=== PATIENT | female | born 1980 | race Asian ===

== ENCOUNTER 2020-06-30 13:47 | Outpatient (CLI) | payer BC, SELFPAY ==
--- NOTE | ~2020-06-30 | US_ITS ---
EXAMINATION: US pelvic complete w TV DATE: 06/30/2020 14:45 INDICATION: Other specified nonrheumatoid disorders TECHNIQUE: Multiple transabdominal and endovaginal sonographic images of the pelvis were obtained. COMPARISON: None. FINDINGS: The uterus measures 15.4 x 10.3 x 7.7 cm. There is an 8.5 x 8.9 x 8.4 cm mass of the uterus which has the appearance of a fibroid. The endometrial complex is obscured. The left ovary is not vi sualized however no left adnexal abnormality is seen. The right ovary measures 3.1 x 3.0 x 1.8 cm. Th ere is normal vascular flow in the right ovary. There is no free fluid in the pelvis. IMPRESSION: 1. Uterine fibroid measuring up to 8.9 cm. Reviewed, dictated and finalized at location B.
== END 2020-06-30 13:48 | disposition home or self-care (01) ==
PROVIDERS: PCP Family Medicine; Visit Provider Family Medicine
DX: N85.8 Other specified noninflammatory disorders of uterus (principal); D25.9 Leiomyoma of uterus, unspecified
CPT/HCPCS: 76830; 76856

== ENCOUNTER → 2021-01-20 15:44 | Outpatient (CLI) | payer BC, SELFPAY ==
--- NOTE | ~2021-01-20 | MM_ITS ---
EXAMINATION: MM screening lila BI w nidia HISTORY: Screening mammogram TECHNIQUE: Craniocaudal and mediolateral oblique 3-D tomosynthesis images were obtained and synthetic 2-D images were generated. CAD analysis was submitted and interpreted. COMPARISON: None, baseline BREAST PARENCHYMAL COMPOSITION: The breasts are heterogeneously dense, which may obscure small masses . FINDINGS: There is no evidence of suspicious mass, calcification, or architectural distortion to sugg est malignancy in either breast. IMPRESSION: 1. No mammographic evidence of malignancy. 2. Recommend routine screening mammography in one year. BI-RADS Category 1: Negative Reviewed, dictated and finalized at location A.
== END ==
PROVIDERS: Visit Provider Student in an Organized Health Care Education/Training Program
DX: Z12.31 Encounter for screening mammogram for malignant neoplasm of breast (principal)
CPT/HCPCS: 77063; 77067

== ENCOUNTER 2021-03-13 16:19 | Emergency (ER) | payer BC, SELFPAY ==
[2021-03-13 16:24] VITALS: BP 107/60; PULSE 60; RESP 18; TEMP 36.6; O2SAT 100
--- NOTE | 2021-03-13 16:27 | ED.NAVMDI ---
HPI - Nausea/Vomiting/Diarrhea General Chief complaint: Nausea/Vomiting/Diarrhea Stated complaint: nausea Time Seen by Provider: 03/13/21 16:27 Source: patient and RN notes reviewed History of Present Illness HPI Narrative: Patient is a 41-year-old female who presents the urgent care with complaints of nausea. Patient states that 1 week ago she had some intermittent nausea and did take meclizine which improved the nausea. Patient states that she had the nausea this morning with some chills without vomiting. Patient states her last bowel movement was last night. Patient states she is currently trying to get and her last menstrual cycle was approximately 3 weeks ago. Patient states she has been eating and drinking normally without any recent changes in diet or medications. Patient denies suffering from nausea in the past. Denies of any urinary frequency, urgency, blood in the urine or pain with urination. No other acute complaints. No acute distress noted. Patient aware of the plan of care. Some parts of this dictation were generated by voice recognition software and may contain typographical and/or grammatical inaccuracies. Related Data Allergies Allergy/AdvReac Type Severity Reaction Status Date / Time No Known Allergies Allergy Verified 11/23/20 12:31 Review of Systems Review of Systems: Narrative: CONSTITUTIONAL: Denies fever, chills, or sweats. EYES: Denies visual changes, redness, or discharge. ENT: Denies rhinorrhea, congestion, sore throat, or otalgia. CARDIOVASCULAR: Denies chest pain, palpitations, or edema. RESPIRATORY: Denies cough or dyspnea. GASTROINTESTINAL: Reports of nausea without vomiting, diarrhea or abdominal pain GENITOURINARY: Denies dysuria or hematuria. SKIN: Denies rash or itching. MUSCULOSKELETAL: Denies back pain, joint pain, or myalgia. NEUROLOGIC: Denies headache, numbness, or weakness. All other systems reviewed are negative, except as documented in HPI. [facility] Past Medical History Medical History (Updated 03/13/21 @ 16:46 by ARI Omer) Macular scar Maculopathy Overweight (BMI 25.0-29.9) Uterine mass Family History Family History Father Diabetes mellitus Prostate disease FH: cataracts Cerebrovascular accident Mother Heart disease Hypertension Grandparent Heart disease Asthma Hypertension Grandparent Lung disease Social History Social History Smoking status: Never smoker Alcohol intake: current Substance use: never Gender identity (if verbalized by the patient): Female Comments At the time of my signature, I reviewed and agree with the nursing past medical, surgical, social, and family history. There is no relevant family history pertinent to the patient complaint. Exam Narrative: Exam Narrative: GENERAL: This is a well-nourished, well-developed patient, in no apparent distress. HEAD: normocephalic, atraumatic. EYES: PERRL. Sclera clear/white. Vision is grossly intact. EARS: External ears normal, auditory canals clear and without drainage, TMs normal without perforation. Hearing grossly intact. NOSE: External nose normal with no obvious nasal discharge, nares without redness, no rhinorrhea. THROAT: Mucous membranes moist, posterior pharynx clear. NECK: Neck supple CARDIOVASCULAR: Regular rate and rhythm without murmurs, gallops, or rubs. RESPIRATORY: Clear to auscultation. Breath sounds equal bilaterally. No wheezes, rales, or rhonchi. GASTROINTESTINAL: Abdomen soft, mild suprapubic tenderness, nondistended. Bowel sounds are active. SKIN: warm, intact with no suspicious lesions or rash, good texture and turgor. NEURO: awake, alert, and oriented to person, place and time. There were no obvious focal neurologic abnormalities. EXTREMITIES: No clubbing, cyanosis, or edema. Course Vital Signs Vital signs: Vital
== END 2021-03-13 16:57 | disposition home or self-care (01) ==
PROVIDERS: Emergency Provider Nurse Practitioner Family; PCP Family Medicine
DX: R11.0 Nausea (principal)
CPT/HCPCS: 81003; 81025; 99213; G0463

== ENCOUNTER 2021-05-17 10:49 | Emergency (ER) | payer BC, SELFPAY ==
[2021-05-17 10:56] VITALS: BP 128/81; PULSE 67; RESP 18; TEMP 36.6; O2SAT 100
--- NOTE | 2021-05-17 11:15 | ED.SKABFB ---
HPI - Skin/Abscess/Foreign Bdy General Chief complaint: Skin/Abscess/Foreign Body Stated complaint: rash Source: patient and RN notes reviewed Mode of arrival: ambulatory History of Present Illness HPI narrative: The patient, previously healthy on minimal medications, presents with skin eruption. Patient states she has about a 2-week history of pink, itchy, raised eruption generally on the exposed areas of her upper and lower extremities. Discussed possible causes of photosensitivity's and she only can recall use of sunscreen and some new detergents. No fever, URI?sinusitis, travel or swimming history, new meds, insect bite. Related Data Allergies Allergy/AdvReac Type Severity Reaction Status Date / Time No Known Allergies Allergy Verified 05/17/21 11:01 Review of Systems Review of Systems: Narrative: General/Constitutional: No weight loss,fever Eyes: N0: Redness,discharge Ears/Nose/Throat: No: Epistaxis,ear discharge Respiratory: Denies: Hemoptysis Gastrointestinal: No Vomiting, Bleeding-rectal Skin: No Lumps, eruption Neurologic: No Focal Weakness,Sz Hematologic: Denies: Petechiae/Purpura Psychiatric: No: Suicida ideationl All Other Systems: Reviewed and Negative [facility], [facility] Past Medical History Medical History (Updated 05/17/21 @ 17:03 by Maximo Fraser MD) Macular scar Maculopathy Overweight (BMI 25.0-29.9) Uterine mass Family History Family History Father Diabetes mellitus Prostate disease FH: cataracts Cerebrovascular accident Mother Heart disease Hypertension Grandparent Heart disease Asthma Hypertension Grandparent Lung disease Social History Social History Smoking status: Never smoker Alcohol intake: current Alcohol use details: occasional Substance use: never Gender identity (if verbalized by the patient): Female Comments At time of signature, agree with nursing past medical, surgical, social and family history. There is no relevant family history pertinent to the presenting complaint Exam Narrative: Exam Narrative: General Appearance: Well nourished , Conjunctiva clear Ear: External ear normal Nose: Normal nose, Nare clear Mouth/Throat: Normal appearing Neck Exam: Supple Respiratory: Airway patent, No respiratory distress Musculoskeletal: Moves all extremities, Non tender Skin: Warm, Dry ; blanching, maculopapular eruption exposed areas extremities Neurological: A&O x3 Psychiatric: Normal mood, Normal affect Course Vital Signs Vital signs: Vital Signs Temperature 97.8 F 05/17/21 10:56 Pulse Rate 67 05/17/21 10:56 Respiratory Rate 18 05/17/21 10:56 Blood Pressure 128/81 05/17/21 10:56 Pulse Oximetry 100 05/17/21 10:56 Temperature 97.8 F 05/17/21 10:56 Pulse Rate 67 05/17/21 10:56 Respiratory Rate 18 05/17/21 10:56 Blood Pressure 128/81 05/17/21 10:56 Pulse Oximetry 100 05/17/21 10:56 Discharge Plan Discharge Clinical Impression: Dermatitis, Pruritic condition Patient Disposition: Home, Self-Care Condition: Stable Instructions: Contact Dermatitis (ED) Additional Instructions: Keep photo log of area; see PMD in follow-up Prescriptions: New prednisone 20 mg tablet 60 mg PO DAILY Qty: 21 RF: 0 loratadine [Claritin] 10 mg tablet 10 mg PO DAILY Qty: 20 RF: 1 Follow-up/Referrals: Walter Avila MD [Primary Care Provider] -
== END 2021-05-17 11:22 | disposition home or self-care (01) ==
PROVIDERS: Emergency Provider Emergency Medicine; PCP Family Medicine
DX: L30.9 Dermatitis, unspecified (principal); H35.389 Toxic maculopathy, unspecified eye
CPT/HCPCS: 99213; G0463

== ENCOUNTER 2022-06-21 10:36 | Outpatient (CLI) | payer BC, SELFPAY ==
--- NOTE | ~2022-06-21 | XR_ITS ---
EXAMINATION: XR chest 2V DATE: 06/21/2022 11:04 INDICATION: COVID 19 TECHNIQUE: PA and lateral views of the chest were obtained. COMPARISON: None FINDINGS: The lungs are clear with no focal airspace opacities, pulmonary edema, pleural effusion or pneumothor ax. The cardiomediastinal silhouette is normal. Mild thoracolumbar dextrocurvature. IMPRESSION: 1. No acute cardiopulmonary disease. Reviewed, dictated and finalized at location A.
== END 2022-06-21 10:37 | disposition home or self-care (01) ==
PROVIDERS: PCP Family Medicine; Visit Provider Physician Assistant
DX: U07.1 COVID-19 (principal); R06.02 Shortness of breath; R05.9 Cough, unspecified
CPT/HCPCS: 71046

== ENCOUNTER 2022-07-22 16:52 | Emergency (ER) | payer BC, SELFPAY ==
--- NOTE | 2022-07-22 16:55 | ED.BACK ---
HPI - Back Pain/Injury General Chief Complaint: Urogenital-Female Stated Complaint: lower left back pain Time Seen by Provider: 07/22/22 16:55 Source: patient and RN notes reviewed History of Present Illness HPI Narrative: Patient is a 42-year-old female who presents the urgent care with complaints of left lower back pain that radiates to the left abdomen. Patient states that started 2 days ago and she has been taking ibuprofen with minimal relief. Patient denies any urinary symptoms. Denies any history of kidney stones. Patient has not done any strenuous activity or heavy lifting recently. States that yesterday she was unable to get comfortable in any position and laid in bed all day . Patient denies chance of and last menstrual cycle was last . Patient states she does have chronic issues with constipation however she had a normal bowel movement last night. No other acute complaints. No acute distress noted. Patient aware of the plan of care. Some parts of this dictation were generated by voice recognition software and may contain typographical and/or grammatical inaccuracies. Related Data Allergies Allergy/AdvReac Type Severity Reaction Status Date / Time No Known Allergies Allergy Verified 07/22/22 17:00 Review of Systems Review of Systems: CONSTITUTIONAL: Denies fever, chills, or sweats. EYES: Denies visual changes, redness, or discharge. ENT: Denies rhinorrhea, congestion, sore throat, or otalgia. CARDIOVASCULAR: Denies chest pain, palpitations, or edema. RESPIRATORY: Denies cough or dyspnea. GASTROINTESTINAL: Denies nausea, vomiting, or diarrhea. GENITOURINARY: Denies dysuria or hematuria. Reports of left flank pain rating to the left abdomen SKIN: Denies rash or itching. MUSCULOSKELETAL: Denies back pain, joint pain, or myalgia. NEUROLOGIC: Denies headache, numbness, or weakness. All other systems reviewed are negative, except as documented in HPI. [facility] Past Medical History Medical History Macular scar Maculopathy Overweight (BMI 25.0-29.9) Uterine mass Vitamin D deficiency Family History Family History Father Diabetes mellitus Prostate disease FH: cataracts Cerebrovascular accident Mother Heart disease Hypertension Grandparent Heart disease Asthma Hypertension Grandparent Lung disease Social History Social History Smoking status: Never smoker Alcohol intake: current Alcohol use details: occasional Substance use: never Gender identity (if verbalized by the patient): Female Comments At the time of my signature, I reviewed and agree with the nursing past medical, surgical, social, and family history. There is no relevant family history pertinent to the patient complaint. Exam Narrative: GENERAL: This is a well-nourished, well-developed patient, in no apparent distress. HEAD: normocephalic, atraumatic. EYES: PERRL. Sclera clear/white. Vision is grossly intact. EARS: External ears normal NOSE: External nose normal with no obvious nasal discharge, nares without redness, no rhinorrhea. THROAT: Mucous membranes moist NECK: Neck supple CARDIOVASCULAR: Regular rate and rhythm without murmurs, gallops, or rubs. RESPIRATORY: Clear to auscultation. Breath sounds equal bilaterally. No wheezes, rales, or rhonchi. GASTROINTESTINAL: Abdomen soft, mild left suprapubic tenderness, nondistended. Bowel sounds are active. SKIN: warm, intact with no suspicious lesions or rash, good texture and turgor. NEURO: awake, alert, and oriented to person, place and time. There were no obvious focal neurologic abnormalities. EXTREMITIES: No clubbing, cyanosis, or edema. BACK: Mild to moderate left CVA tenderness Course Course Level of Care: Express Care Visit Vital Signs Vital signs: Vital Signs Tempera
[2022-07-22 16:58] VITALS: BP 143/90; PULSE 75; RESP 18; TEMP 36.8; O2SAT 100
[2022-07-22 17:07] VITALS: BP 143/90; PULSE 75; RESP 18; TEMP 36.8; O2SAT 100
== END 2022-07-22 17:30 | disposition home or self-care (01) ==
PROVIDERS: Emergency Provider Nurse Practitioner Family; PCP Family Medicine
DX: R10.9 Unspecified abdominal pain (principal)
CPT/HCPCS: 81003; 99213; G0463

== ENCOUNTER 2022-11-23 14:29 | Emergency (ER) | payer BC, SELFPAY ==
[2022-11-23 14:35] VITALS: BP 153/88; PULSE 68; RESP 20; TEMP 36.8; O2SAT 100
--- NOTE | 2022-11-23 14:42 | ED.GENADULT ---
HPI - General Adult General Chief complaint: Dizziness Stated complaint: nausea, high blood pressure; Source: patient and RN notes reviewed History of Present Illness HPI narrative: 42-year-old female presents to urgent care with complaints of nausea and feelings of lightheadedness. Patient states this has been going on since noon and started at work. Patient denies any headache, blurry vision, syncope, chest pain, shortness of breath, vomiting, diarrhea, fevers, chills, congestion, or sore throat. Patient states when symptoms began, she had her blood pressure taken at [facility] and was found to be elevated so it was recommended she be further evaluated. Patient does admit to starting any medication and had her 1st dose of citalopram last night. Pt also reports ringing in her left ear. Some parts of this dictation were generated by voice recognition software and may contain typographical and/or grammatical inaccuracies. Related Data Allergies Allergy/AdvReac Type Severity Reaction Status Date / Time No Known Allergies Allergy Verified 11/23/22 14:50 Review of Systems Review of Systems: CONSTITUTIONAL: Denies fever, chills, or sweats. EYES: Denies visual changes, redness, or discharge. ENT: Denies otalgia and sore throat. Reports left ear ringing. CARDIOVASCULAR: Denies chest pain, palpitations, or edema. RESPIRATORY: Denies cough or dyspnea. GASTROINTESTINAL: Reports nausea. Denies abdominal pain, vomiting, or diarrhea. GENITOURINARY: Denies dysuria or hematuria. SKIN: Denies rash or itching. MUSCULOSKELETAL: Denies back pain, joint pain, or myalgia. NEUROLOGIC: Reports lightheadedness. Denies headache, numbness, or weakness. [facility] Past Medical History Medical History (Updated 11/23/22 @ 15:44 by Juany Silverman, [place]) Anxiety Depression Diabetes mellitus Macular scar Maculopathy Overweight (BMI 25.0-29.9) Uterine mass Vitamin D deficiency Family History Family History Father Diabetes mellitus Prostate disease FH: cataracts Cerebrovascular accident Mother Heart disease Hypertension Grandparent Heart disease Asthma Hypertension Grandparent Lung disease Social History Social History Smoking status: Never smoker Alcohol intake: current Alcohol use details: occasional Substance use: never Gender identity (if verbalized by the patient): Female Comments At the time of my signature, I reviewed and agree with the nursing past medical, surgical, social, and family history. There is no relevant family history pertinent to the patient complaint. Exam Narrative: GENERAL: This is a well-nourished, well-developed patient, in no apparent distress. HEAD: normocephalic, atraumatic. EYES: PERRL. Sclera clear/white. Vision is grossly intact. EARS: External ears normal, auditory canals clear and without drainage, TMs normal without perforation. Hearing grossly intact. NOSE: External nose normal with no obvious nasal discharge, nares without redness, no rhinorrhea. THROAT: Mucous membranes moist, posterior pharynx clear. NECK: Neck supple, non-tender without lymphadenopathy, masses or thyromegaly. CARDIOVASCULAR: Regular rate and rhythm without murmurs, gallops, or rubs. RESPIRATORY: Clear to auscultation. Breath sounds equal bilaterally. No wheezes, rales, or rhonchi. GASTROINTESTINAL: Abdomen soft, non-tender, nondistended. Bowel sounds are active. No hepato-splenomegaly, or palpable masses. No guarding. SKIN: warm, intact with no suspicious lesions or rash, good texture and turgor. NEURO: awake, alert, and oriented to person, place and time. There were no obvious focal neurologic abnormalities. EXTREMITIES: No clubbing, cyanosis, or edema. No joint tenderness, effusion, or edema noted. No calf tenderness. Negative Homans sign bilaterally. BACK: Nontender without deformity or crep
[2022-11-23 14:59] LABS: Glucose Point of Care 140 mg/dl (65-105)
[2022-11-23] MEDS: diphenhydrAMINE HCl CAP 25 MG CAPSULE PO (15:01)
[2022-11-23] MEDS: ONDANSETRON HCL ODT 4 MG TABLET PO (15:02)
[2022-11-23 15:25] VITALS: BP 140/85
[2022-11-23 15:40] VITALS: BP 132/82
== END 2022-11-23 15:50 | disposition home or self-care (01) ==
PROVIDERS: Emergency Provider Nurse Practitioner Family; PCP Family Medicine
DX: R42 Dizziness and giddiness (principal); R11.0 Nausea; T43.225A Adverse effect of selective serotonin reuptake inhibitors, initial encounter; E11.9 Type 2 diabetes mellitus without complications; F41.9 Anxiety disorder, unspecified; F32.A Depression, unspecified
CPT/HCPCS: 82948; 99213; A9270; G0463

== ENCOUNTER 2023-10-04 10:34 | Outpatient (CLI) | payer BC, SELFPAY ==
--- NOTE | ~2023-10-04 | US_ITS ---
Pelvic ultrasound. Clinical History: Enlarged uterus COMPARISON: 06/30/2020 Technique: Realtime transabdominal and transvaginal scanning of the pelvis was performed. Color flow Doppler and Doppler spectral analysis were performed. Findings: The uterus is anteverted, and measures 18.4 x 10.2 x 1.7 cm. The endometrial stripe has a thickness of 11 mm. Intramural fibroid measures 5.6 cm in diameter. Additional lower uterine segment fibroid measures 4.4 centers in diameter. Mid uterine fibroid anteriorly measures 5.3 cm in diameter. There are probable additional ill-defined fibroids.. The right ovary is not visualized. No significant right ovarian or adnexal mass is seen. The left ovary measures 2.9 x 3.4 x 1.7 cm. No significant left ovarian or adnexal mass is seen. There is no evidence of free fluid in the cul de sac. Impression: Enlarged, multiple fibroid uterus, as detailed above. Reviewed, dictated and finalized at location . ACTORY REPAIRER Impression: Enlarged, multiple fibroid uterus, as detailed above.
== END 2023-10-04 10:35 ==
PROVIDERS: PCP Advanced Practice Midwife; Visit Provider Advanced Practice Midwife
DX: N85.2 Hypertrophy of uterus (principal); D25.1 Intramural leiomyoma of uterus
CPT/HCPCS: 76856

== ENCOUNTER 2024-01-20 14:33 | Outpatient (CLI) | payer BC, SELFPAY ==
--- NOTE | ~2024-01-20 | MM_ITS ---
EXAMINATION: MM screening lila BI w nidia HISTORY: Screening TECHNIQUE: Craniocaudal and mediolateral oblique 3-D tomosynthesis images were obtained and synthetic 2-D images were generated. CAD analysis was submitted and interpreted. COMPARISON: 01/20/2021 BREAST PARENCHYMAL COMPOSITION: The breasts are heterogeneously dense, which may obscure small masses . FINDINGS: There is no evidence of suspicious mass, calcification, or architectural distortion to sugg est malignancy in either breast. There has been no suspicious interval change. IMPRESSION: 1. No mammographic evidence of malignancy. 2. Recommend routine screening mammography in one year. BI-RADS Category 1: Negative Reviewed, dictated and finalized at location A.
== END 2024-01-20 14:34 ==
LOC: MICIMG 14:34
PROVIDERS: PCP Advanced Practice Midwife; Visit Provider Advanced Practice Midwife
DX: Z12.31 Encounter for screening mammogram for malignant neoplasm of breast (principal)
CPT/HCPCS: 77063; 77067

== ENCOUNTER 2025-02-02 01:14 | Day surgery (SDC) | payer BC, SELFPAY ==
[2024-12-21 10:36] VITALS: BMI 25.8
--- OUTSIDE RECORDS SUMMARY | 2024-12-22 00:33 | XMS_ITS | Patient Health Summary ---
Author Organization [facility] Address [address] [place] [address] Care Team Providers Care Dry Wall Nailer Name Role Phone Unavailable Primary Care Provider Unavailabl e Note from [facility],non-owned Affiliates and Associated Physician Practices is amultiple site organization consisting of ambulatory clinics and hospital sitesin [place], [place], [place] and [place]. This disclosure is being madepursuant to the Care Everywhere program and may not contain all information available regarding this patient. Last updated 18.[facility] Allergies No known active allergies Medications Be aware that medications may not be up to date on this document. Always verify current medications with the patient. No known medications Social History Tobacco Use Types Packs/Day Years Used Date Smoking Tobacco: Never Assessed Sex and Gender Information Value Date Recorded Sex Assigned at Not on file Gender Identity Not on file Sexual Orientation Not on file Last Filed Vital Signs Vital Sign Reading Time Taken Comments Blood Pressure 145/84 01/27/2021 8:08 AM CDT Pulse 62 01/27/2021 8:08 AM CDT Temperature 36.3 C (97.4 F) 01/27/2021 8:08 AM CDT Respiratory Rate 16 01/27/2021 8:08 AM CDT Oxygen Saturation 100% 01/27/2021 8:08 AM CDT Inhaled Oxygen Concentration - - Weight 68.5 kg (151 lb) 01/27/2021 8:08 AM CDT Height 160 cm (5' 3 ) 01/27/2021 8:08 AM CDT Body Mass Index 26.75 01/27/2021 8:08 AM CDT
--- OUTSIDE RECORDS SUMMARY | 2024-12-22 00:33 | XMS_ITS | Clinical Summary ---
Author Organization [facility] Address [address] [place] [address] Care Team Providers Care Network Security Analyst Name Role Phone Unavailable Primary Care Provider Unavailabl e Source Comments [facility],non-owned Affiliates and Associated Physician Practices is amultiple site organization consisting of ambulatory clinics and hospital sitesin [place], [place], [place] and [place]. This disclosure is being madepursuant to the Care Everywhere program and may not contain all information available regarding this patient. Last updated 18.[facility] Allergies No known active allergies Medications Be [...] Mass Index 26.75 01/27/2021 8:08 AM CDT Plan of Treatment Health Maintenance Due Date Last Done Comments COLOGUARD (AGES 45-75) - COL ON CA SCREENING 1979 COLON MONITORING 1979 COLONOSCOPY - COLON CA SCREENING 1979 CT COLONOGRAPHY - COLON CA SCREENING 1979 Colorectal Cancer Screening 1979 FIT - COLON CA SCREENING 1979 FLEX SIG - COLON CA SCREENING 1979 LIPID TESTING 1979 MAMMOGRAM 1979 PAP SMEAR 1979 HIV SCREENING 1994 HEPATITIS C SCREENING 01/21/1997 DTAP/TDAP/TD VACCINES (1 - Tdap) 1998 HEPATITIS B VACCINE (1 of 3 - 19+ 3-dose series) 1998 SCREENING FOR DIABETES 01/27/2021 COVID-19 VACCINE (1 - 2023-2 5 season) 2024 INFLUENZA VACCINE (#1) 2024 DEPRESSION SCREENING 10/21/2024 ZOSTER VACCINE (1 of 2) 2029 HIB VACCINE Aged Out No longer eligi ble based on patient's age to complete this topic HPV VACCINE Aged Out No longer eligi ble based on patient's age to complete this topic MENINGOCOCCAL (Group B) VACCINE Aged Out No longer eligible based on patient's age to complete this topic MENINGOCOCCAL VACCINE Aged Out No favian sher eligible based on patient's age to complete this topic PNEUMOCOCCAL VACCINE Aged Out No long er eligible based on patient's age to complete this topic [address] [place] [id number] Marilynn Walls Personal/Family Self 1980 [facility] [facility] [address] [place] [address]
--- OUTSIDE RECORDS SUMMARY | 2024-12-22 00:33 | XMS_ITS | Referral Summary ---
Author Organization [facility] Address [address] [place] [address] Care Team Providers Care Wallet Assembler Name Role Phone Unavailable Primary Care Provider Unavailabl e Source Comments [facility],non-owned Affiliates and Associated Physician Practices is amultiple site organization consisting of ambulatory clinics and hospital sitesin [place], [place], [place] and [place]. This disclosure is being madepursuant to the Care Everywhere program and may not contain all information available regarding this patient. Last updated 18.[facility] Allergies No known active allergies Medications Be [...] 01/27/2021 8:08 AM CDT Plan of Treatment Not on file [address] [place] [id number] Marilynn Walls Personal/Family Self [address] [place] [address] [address] [place] [address]
[2025-01-29 10:27] VITALS: BMI 25.8
--- OUTSIDE RECORDS SUMMARY | 2025-02-02 01:17 | XMS_ITS | Clinical Summary ---
Author Organization [facility] Address [address] [place] [address] Care Team Providers Care Protection Agent Name Role Phone Unavailable Primary Care Provider Unavailabl e Source Comments [facility],non-owned Affiliates and Associated Physician Practices is amultiple site organization consisting of ambulatory clinics and hospital sitesin [place], [place], [place] and [place]. This disclosure is being madepursuant to the Care Everywhere program and may not contain all information available regarding this patient. Last updated 18.[facility] Allergies No known active allergies Medications * Be aware that medications may not be up to date on this document. Alwaysverify current medications with the patient. No known medications Social History Tobacco Use Types Packs/Day Years Used Date Smoking Tobacco: Never Assessed Comments Unknown Sex and Gender Information Value Date Recorded Sex Assigned at Not on file Legal Sex Female 1:24 PM [employer] Gender Identity Not on file Sexual Orientation [...] VACCINE (1 - 2023-2 5 season) 2024 DEPRESSION SCREENING 10/21/2024 INFLUENZA VACCINE (Season Ended) 2025 ZOSTER VACCINE (1 of 2) 2029 HIB VACCINE Aged Out No longer eligi ble based on patient's age to complete this topic HPV VACCINE Aged Out No longer eligi ble based on patient's age to complete this topic MENINGOCOCCAL (Group B) VACC INE SHARED DECISION-MAKING Aged Out No longer eligibl e based on patient's age to complete this topic MENINGOCOCCAL GROUPS A/C/Y/W VACCINE Aged Out No longer eligible b ased on patient's age to complete this topic PNEUMOCOCCAL VACCINE Aged Out No long er eligible based on patient's age to complete this topic Insurance [employer]
[2025-02-02 09:09] VITALS: BP 131/84; PULSE 71; RESP 18; TEMP 36.7; O2SAT 100
[2025-02-02 09:14] LABS: BEDSIDEPREGUCG Negative (Negative)
[2025-02-02] MEDS: LACTATED RINGERS 1,000 ML 150 ML IV CONT (09:19)
[2025-02-02 09:24] LABS: Glucose Point of Care 167 mg/dl (65-105)
--- NOTE | 2025-02-02 09:38 | P.PNAN_ITS ---
Anes - Initial Pre Proc Eval Procedure: Operation Date: 02/02/25 10:00 Proposed Procedures p Screening Colonoscopy - Loy Raygoza DO Date/Time: 02/02/25 09:38 Surgeon: Loy Raygoza DO Pre Op Diagnosis: Screening for malignant neoplasm of colon Patient Data Age: 45 Gender: F Height: 1.63 m Weight: 66.7 kg Last Vital Signs Temp 36.7 C 02/02/25 09:09 Pulse 71 02/02/25 09:09 Resp 18 02/02/25 09:09 BP 131/84 02/02/25 09:09 Pulse Ox 100 02/02/25 09:09 O2 Del Method Room Air 02/02/25 09:09 Allergies Allergy/AdvReac Type Severity Reaction Status Date / Time No Known Allergies Allergy Verified 02/02/25 09:05 Home Medications ?Medication ?Instructions ?Recorded ?Confirmed ?Type ondansetron 4 mg disintegrating 4 mg PO Q8H PRN nausea and 06/10/24 12/21/24 Rx tablet vomiting #10 tabs fluconazole 150 mg tablet 150 mg PO ONCE #1 tablet 07/23/24 12/21/24 Rx escitalopram oxalate 10 mg tablet 10 mg PO DAILY #90 tabs 08/24/24 02/02/25 Rx (Lexapro) metformin 500 mg tablet,extended 1,500 mg (3 x 500 mg) PO DAILY 90 10/05/24 02/02/25 Rx release 24 hr days #270 tabs Laboratory Tests 02/02/25 02/02/25 09:09 09:21 POC Capillary Glucose 167 H mg/dl (65-105) POC Urine HCG, Qual Negative (Negative) Patient hx anesthesia problems: none Family hx anesthesia problems: none Results Review: All pre-operative results and documents have been reviewed as part of the pre- operative evaluation. [facility] Past Medical History Medical History Diabetes mellitus Anxiety Depression Vitamin D deficiency Macular scar Overweight (BMI 25.0-29.9) Maculopathy Uterine mass Family History Family History Father Diabetes mellitus Prostate disease FH: cataracts Cerebrovascular accident Mother Heart disease Hypertension Grandparent Heart disease Asthma Hypertension Grandparent Lung disease Social History Social History Smoking status: Never smoker Alcohol intake: never Substance use: never Substance use type: does not use Living arrangements: with family Gender identity (if verbalized by the patient): Female Spiritual care concerns: No Anes - Eval Final PreProcedure Day of Procedure 02/02/25 09:38 Patient weight: normal Heart: regular rate and rhythm Lungs: clear to auscultation Airway: Mallampati scale class II Neurological: alert and oriented Last oral intake: >/= 8 hours ASA classification: II Emergent: no Anesthetic plan: proceed Anesthesia type and monitoring: general GIVS and standard monitoring Results Review: All pre-operative results and documents have been reviewed as part of the pre- operative evaluation. Informed Consent: The patient's anesthetic plan and its attendant risks and benefits were discussed with the patient/family/POA. Questions were solicited and answers provided to the satisfaction of the patient/family/POA.
--- NOTE | 2025-02-02 09:46 | P.HP_ITS ---
H&P: HPI History of Present Illness Date/Time: 02/02/25 09:46 Chief Complaint: screening for colorectal cancer Narrative: this is a 45-year-old woman who presents for colonoscopy. She has never had a colonoscopy before. She denies any hematochezia or melena. She denies family history of colon cancer. She does have constipation frequently. Review of Systems Review of Systems: All systems reviewed & are unremarkable except as noted in HPI and below Constitutional: Constitutional: Denies chills, Denies fever(s), Denies headache(s) and Denies weight loss Eyes: Eyes: Denies change in vision ENT: Denies dizziness, Denies headache(s), Denies neck mass and Denies throat swelling Cardiovascular: Cardiovascular: Denies chest pain, Denies lightheadedness and Denies dyspnea Respiratory: Respiratory: Denies cough, Denies dyspnea and Denies wheezing Gastrointestinal: Gastrointestinal: Denies abdominal pain, Denies change in bowel habits, Denies nausea and Denies vomiting Genitourinary: Genitourinary: Denies hematuria and Denies dysuria Musculoskeletal: Musculoskeletal: Reports as per HPI Integumentary/Breasts: Skin/Breast: Reports as per HPI Neurologic: Denies dizziness and Denies headache(s) Allergic/Immunologic: Allergic/Immunologic: Denies throat swelling and Denies wheezing PMFSH Past Medical History Medical History Diabetes mellitus Anxiety Depression Vitamin D deficiency Macular scar Overweight (BMI 25.0-29.9) Maculopathy Uterine mass Family History Family History Father Diabetes mellitus Prostate disease FH: cataracts Cerebrovascular accident Mother Heart disease Hypertension Grandparent Heart disease Asthma Hypertension Grandparent Lung disease Social History Social History Smoking status: Never smoker Alcohol intake: never Substance use: never Substance use type: does not use Living arrangements: with family Gender identity (if verbalized by the patient): Female Spiritual care concerns: No Meds Home Medications and Allergies Home Medications ?Medication ?Instructions ?Recorded ?Confirmed ?Type ondansetron 4 mg disintegrating 4 mg PO Q8H PRN nausea and 06/10/24 12/21/24 Rx tablet vomiting #10 tabs fluconazole 150 mg tablet 150 mg PO ONCE #1 tablet 07/23/24 12/21/24 Rx escitalopram oxalate 10 mg tablet 10 mg PO DAILY #90 tabs 08/24/24 02/02/25 Rx (Lexapro) metformin 500 mg tablet,extended 1,500 mg (3 x 500 mg) PO DAILY 90 10/05/24 02/02/25 Rx release 24 hr days #270 tabs Allergies Allergy/AdvReac Type Severity Reaction Status Date / Time No Known Allergies Allergy Verified 02/02/25 09:05 Vital Signs Vital Signs - 24 hr 02/02/25 09:09 Temperature 98.1 F Pulse Rate 71 Respiratory Rate 18 Blood Pressure 131/84 Pulse Oximetry 100 Oxygen Delivery Room Air Exam Const: General: no acute distress and alert Orientation/consciousness: patient oriented x3 HENMT: Head: normocephalic and atraumatic Ears: hearing grossly normal bilaterally Face/Nose/Sinus: Normal nares present Mouth: Yes Normal oral and palatal mucosa present Eyes: Periorbital: periorbital findings normal Sclera: sclerae normal EOM: EOMs intact bilaterally Neck: Neck: normal visual inspection, no lymphadenopathy and trachea midline Chest: Chest palpation & inspection: normal inspection of the chest Resp: Effort & Inspection: normal respiratory effort Auscultation: clear to auscultation bilaterally Cardio: Jugular venous distension: no JVD Rate: regular rate Rhythm: regular rhythm Heart sounds: S1 normal heart sound present and S2 normal heart sound present Peripheral pulses: Peripheral pulses 2+ throughout GI: Inspection: normal to inspection GI Palp: Yes Soft to palpation, No Tenderness to palpation present (GI), No Guarding due to palpation present (GI) and No Rebound tenderness present Percussion: Yes normal to percussion Auscultation: normal bowel sounds : General: Yes no CVA tenderness Back/Spine/Pelvis: Back: no CVA tenderness Neuro: General: patient oriented x3, no focal motor deficits and CN's II-XI intact bilaterally Cognition (Neuro): normal cognition Speech: normal speech Motor exam (neuro): 5/5 motor strength present throughout Extrem: General: capillary refill normal and no clubbing, cyanosis or edema Assessment and Plan Assessment and plan (1) Screening for colorectal cancer: Code(s): Z12.11 - Encounter for screening for malignant neoplasm of colon; Z12.12 - Encounter for screening for malignant neoplasm of rectum Status: Acute Assessment and Plan: I have recommended colonoscopy. I have discussed the procedure, risks, benef its, and alternatives. Questions were answered. Patient is agreeable to proceed.
[2025-02-02 10:05] VITALS: BP 98/65; PULSE 85; RESP 20; O2SAT 98
[2025-02-02 10:15] VITALS: BP 92/59; PULSE 77; RESP 14; O2SAT 98
[2025-02-02 10:25] VITALS: BP 107/75; PULSE 65; RESP 21; O2SAT 100
== END 2025-02-02 10:34 | disposition home or self-care (01) ==
PROVIDERS: Anesthesiology; PCP Family Medicine; Visit Provider Surgery
PROC: 0DJD8ZZ Inspection of Lower Intestinal Tract, Via Natural or Artificial Opening Endoscopic (ICD-10-PCS; CPT 45378; principal; 2025-02-02 10:00)
DX: Z12.11 Encounter for screening for malignant neoplasm of colon (principal); K62.1 Rectal polyp; E11.9 Type 2 diabetes mellitus without complications; E55.9 Vitamin D deficiency, unspecified; F41.9 Anxiety disorder, unspecified; F32.A Depression, unspecified; Z79.84 Long term (current) use of oral hypoglycemic drugs; Z82.49 Family history of ischemic heart disease and other diseases of the circulatory system
CPT/HCPCS: 45380; 82948; 88305; J2704; J7120